=== PATIENT | male | born 1970 | race Caucasian/White ===

== ENCOUNTER 2017-12-19 14:45 | Inpatient (IN) | payer MEDICARE, OTHER ==
--- NOTE | 2017-12-19 15:29 | PDOC ---
History of Present Illness - General Chief Complaint: Alcohol intoxication Stated Complaint: Alcohol intoxication Time Seen by Provider: 12/19/17 15:10 - History of Present Illness Initial Comments: 47yo M brought in by EMS after being found sleeping. Patient history limited by somnolence. He admits to drinking alcohol today, about 6 beers. Denied use of other substances or history of heavy drinking. Has no acute complaints. Denies falls or LOC. Not seen here before; No previous charts present in our medical record. Further history provided by family members. Patient has a history of liver cancer and cirrhosis, likely due to heavy alcohol drinking. He continues to drink alcohol regularly and even two or three beers will make him intoxicated. 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 Past History - Past Medical History Allergies/Adverse Reactions: Allergies Allergy/AdvReac Type Severity Reaction Status Date / Time No Known Allergies Allergy Verified 12/19/17 18:37 Home Medications: Ambulatory Orders Unobtainable 12/19/17 COPD: No Other medical history: unable to obtain - Suicide/Smoking/Psychosocial Hx Smoking History: Unknown if ever smoked Have you smoked in the past 12 months: No Information on smoking cessation initiated: No Hx Alcohol Use: Yes Drug/Substance Use Hx: No Review of Systems - Review of Systems Able to Perform ROS?: No *Physical Exam - Vital Signs Last Vital Signs Temp Pulse Resp BP Pulse Ox 97.3 F L 64 18 105/68 94 L 12/19/17 15:08 12/19/17 15:08 12/19/17 15:08 12/19/17 15:08 12/19/17 15:08 - Physical Exam Comments: General: Awake, alert, and fully oriented, somnolent but arousable Head: no signs of trauma Eyes: PEERL, dilated, EOMI, sclera anicteric ENT: Moist mucus membranes Neck: Normal ROM, supple Lungs: Lungs clear, Normal breath sounds Cardio: Regular rhythm, S1 and S2 present Abdomen: Soft, nontender. No guarding, no rebound, no masses Extremities: Normal range of motion, Distal pulses present SKIN: Warm, Dry, normal turgor Neurologic: Cranial nerves II through XII grossly intact. Slurred speech ED Treatment Course - LABORATORY CBC & Chemistry Diagram: 12/19/17 17:00 12/19/17 17:00 Medical Decision Making - Medical Decision Making 47yo M brought in by EMS after being found sleeping on the street. -admits to drinking 6 beers -benign physical exam; no signs of trauma -will obtain labs -CT head 12/19/17 16:14 Elevated liver enzymes, AST 250 and ALT 142; Ammonia 79; ETOH 300 CT Head: "No CT evidence of acute intracranial pathology. A 2x1cm left inferior frontal hypodense focus is sense probably representing posttraumatic encephalomalacia. Nonemergent MRI evaluation is suggested to exclude other pathologies. Alternatively comparison with prior imaging exams may be performed if available from a different facility." ETOH intoxication vs. Hepatic encephalopathy Dr. Kramer spoke with inpatient team who accepted patient for admission Updated daughter, Cecilia, via telephone, 12/19/17 19:45 *DC/Admit/Observation/Transfer Diagnosis at time of Disposition: Hepatic encephalopathy, Elevated liver enzymes, Alcohol intoxication, Altered mental status - Discharge Dispostion Condition at time of disposition: Guarded - Referrals - Patient Instructions - Post Discharge Activity
--- NOTE | 2017-12-19 16:46 | PDOC ---
*Physical Exam - Vital Signs Last Vital Signs Temp Pulse Resp BP Pulse Ox 97.3 F L 64 18 105/68 94 L 12/19/17 15:08 12/19/17 15:08 12/19/17 15:08 12/19/17 15:08 12/19/17 15:08 - Physical Exam Comments: 12/19/17 17:11 Gen: awake, altered, confused heart: +s1s2 reg lungs: coarse bs R lower chest abd: soft, nt/nd _bs ext: no c/c/e skin: no external signs of trauma neuro: cn ii-xii grossly intact, altered, otherwise no focal deficits ED Treatment Course - LABORATORY CBC & Chemistry Diagram: 12/19/17 17:00 12/19/17 17:00 Medical Decision Making - Medical Decision Making 12/19/17 17:13 a/p: 47yo male signed out from the prior attending pending labs, head ct, cxr -pt with hx of liver ca and per family drank today -pt currently altered -labs and imaging pending 12/19/17 19:10 pt with elevated ammonia and elevated LFT pt with elevated etoh level pt with altered MS suspect hepatic encephalopathy will admit to [facility] first visit to [place] *DC/Admit/Observation/Transfer Diagnosis at time of Disposition: Hepatic encephalopathy, Elevated liver enzymes, Alcohol intoxication, Altered mental status - Discharge Dispostion Condition at time of disposition: Guarded Decision to Admit order: Yes - Referrals - Patient Instructions - Post Discharge Activity - Attestations Physician Attestion: 12/19/17 19:11 I, Dr. Conchis Kramer, DO, attest that this document has been prepared under my direction and personally reviewed by me in its entirety. I further attest, that it accurately reflects all work, treatment, procedures and medical decision -making performed by me.
[2017-12-19] MEDS ORDERED: SODIUM CHLORIDE 0.9% 1000 ML INFUS.BAG IV ONE (17:14)
[2017-12-19 17:58] LABS: BASO % 1.1 % (0-2.0); EOS % 2.3 % (0-4.5); HEMOGLOBIN 15.6 GM/dL (11.7-16.9); MCH 34.7 pg (25.7-33.7); MCHC 33.1 g/dl (32.0-35.9); MEAN CELL VOLUME 104.6 fl (80-96); MEAN PLT VOLUME 9.3 fl (7.5-11.1); MONO % 8.3 % (3.8-10.2); NEUT % 51.3 % (42.8-82.8); PLATELET COUNT 169 K/MM3 (134-434); RBC 4.49 M/mm3 (4.00-5.60); RDW 16.5 % (11.9-15.9); WHITE BLOOD COUNT 4.6 K/mm3 (4.0-10.0)
[2017-12-19 18:11] LABS: INR 0.99 (0.83-1.09); PROTHROMBIN TIME (PATIENT) 11.7 SEC (9.7-13.0)
[2017-12-19 18:14] LABS: ACTIVATED PTT 35.3 SECONDS (25.2-36.5); ALBUMIN 3.4 g/dl (3.4-5.0); ALK PHOS 360 U/L (45-117); ANION GAP 6 MMOL/L (8-16); BILIRUBIN,TOTAL 1.6 mg/dL (0.2-1); BLOOD UREA NITROGEN 8 mg/dL (7-18); CALCIUM 9.1 mg/dL (8.5-10.1); CHLORIDE 116 mmol/L (98-107); CO2 26 mmol/L (21-32); CREATININE 0.4 mg/dL (0.55-1.3); GLUCOSE,RANDOM 79 mg/dL (74-106); LIPASE 293 U/L (73-393); SGOT/AST 250 U/L (15-37); SGPT/ALT 142 U/L (13-61); SODIUM 148 mmol/L (136-145); TOT PROT 8.3 g/dl (6.4-8.2)
[2017-12-19 18:24] LABS: MAGNESIUM 2.3 mg/dL (1.8-2.4)
[2017-12-19] MEDS ORDERED: FOLIC ACID INJECTION - 1 MG, THIAMINE HCL 100 MG, MULTIVIT INJECTION ADULT 10 ML in SOD... IVPB ONE (19:45)
[2017-12-19] MEDS ORDERED: LACTULOSE 20 GM/30 ML UDC (FOR ORAL USE ONLY) PO ONE (19:45)
[2017-12-19] MEDS ORDERED: LACTULOSE 20 GM/30 ML UDC (FOR ORAL USE ONLY) ONE (20:23)
--- NOTE | 2017-12-19 20:39 | PDOC ---
Attending Attestation - Resident Resident Name: Lovely Suarez - ED Attending Attestation I have performed the following: I have examined & evaluated the patient, The case was reviewed & discussed with the resident, I agree w/resident's findings & plan, Exceptions are as noted - HPI HPI: 12/19/17 20:33 47 yo male with h;o liver disease, liver ca, etoh abuse here via ambulance for aMS at work. 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 per pt on questions he has no recollection of events prior to his arrival, does not answer questions. no current complaints of pain. family is at the bedside who provide additional history. per report, pt states he had two beers earilier today. no known trauma. no f/c no known h/o seizure disorder. - Physicial Exam PE: 12/19/17 20:35 pt awake, but confused. eyes open. head atraumatic. mild dry mucosal membranes. lungs crackles at right base. no wheezing. heart reg tachycardia. abd soft nt nd. ext wwp. no eccymosis. nuero alert , disoriented to place and date. moves all four ext. skin warm and dry no rash. - Medical Decision Making 12/19/17 20:36 47 yo male with h;o etoh abuse, liver disease/ ca here with ams from work,. differential includes hepatic encephalopathy, acute intoxication of etoh or other substance. infection such as pna, or aspirational pna, electrolyte abnormality, renal failure. plan ct head, labs including cbc cmp tox screen etoh level, ammounia level. lactate. iv hydration as needed. signed out to lexie paez all labs, ekg and ct.
--- NOTE | 2017-12-19 21:24 | HP ---
CHIEF COMPLAINT: intox PCP: Yuan, Oncology, [facility] [phone] HISTORY OF PRESENT ILLNESS: This is a 47 year old male with a significant past medical history of liver CA and chronic ETOH who was brought in by ambulance after being found sleeping and altered at work. Pt does not recall events prior to arrival in the ED. He reports drinking 3 beers today. Denies any complaints at present. seen ambulating without distress in the ED. 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 Smoking: pt denies Alcohol: daily Drugs: pt denies Family History: unable to obtain-pt states "you ask too many questions" Allergies No Known Allergies Allergy (Verified 12/19/17 18:37) HOME MEDICATIONS: 3 Medication Instructions Recorded Unobtainable 12/19/17 REVIEW OF SYSTEMS CONSTITUTIONAL: Absent: fever, chills, diaphoresis, generalized weakness, malaise, loss of appetite, weight change HEENT: Absent: rhinorrhea, nasal congestion, throat pain, throat swelling, difficulty swallowing, mouth swelling, ear pain, eye pain, visual changes CARDIOVASCULAR: Absent: chest pain, syncope, palpitations, irregular heart rate, lightheadedness , peripheral edema RESPIRATORY: Absent: cough, shortness of breath, dyspnea with exertion, orthopnea, wheezing, stridor, hemoptysis GASTROINTESTINAL: Absent: abdominal pain, abdominal distension, nausea, vomiting, diarrhea, constipation, melena, hematochezia GENITOURINARY: Absent: dysuria, frequency, urgency, hesitancy, hematuria, flank pain, genital pain MUSCULOSKELETAL: Absent: myalgia, arthralgia, joint swelling, back pain, neck pain SKIN: Absent: rash, itching, pallor HEMATOLOGIC/IMMUNOLOGIC: Absent: easy bleeding, easy bruising, lymphadenopathy, frequent infections ENDOCRINE: Absent: unexplained weight gain, unexplained weight loss, heat intolerance, cold intolerance NEUROLOGIC: Present: mental status changes Absent: headache, focal weakness or paresthesias, dizziness, unsteady gait, seizure, bladder or bowel incontinence PSYCHIATRIC: Absent: anxiety, depression, suicidal or homicidal ideation, hallucinations. PHYSICAL EXAMINATION Vital Signs - 24 hr 3 12/19/17 12/19/17 15:08 18:34 Temperature 97.3 F L Pulse Rate 64 Pulse Rate [ 62 Right Radial] Respiratory 18 18 Rate Blood Pressure 105/68 Blood Pressure 107/53 L [Left Arm] O2 Sat by Pulse 94 L 95 Oximetry (%) GENERAL: Awake, alert, and fully oriented, in no acute distress. HEAD: Normal with no signs of trauma. EYES: Pupils equal, round and reactive to light, extraocular movements intact, sclera anicteric, conjunctiva clear. No lid lag. EARS, NOSE, THROAT: Ears normal, nares patent, oropharynx clear without exudates. Moist mucous membranes. NECK: Normal range of motion, supple without lymphadenopathy, JVD, or masses. LUNGS: Breath sounds equal, clear to auscultation bilaterally. No wheezes, and no crackles. No accessory muscle use. HEART: Regular rate and rhythm, normal S1 and S2 without murmur, rub or gallop. ABDOMEN: Soft, nontender, not distended, normoactive bowel sounds, no guarding, no rebound, no masses. No hepatomegaly or splenomegaly. MUSCULOSKELETAL: Normal range of motion at all joints. No bony deformities or tenderness. No CVA tenderness. UPPER EXTREMITIES: 2+ pulses, warm, well-perfused. No cyanosis. No clubbing. No peripheral edema. LOWER EXTREMITIES: 2+ pulses, warm, well-perfused. No calf tenderness. No peripheral edema. NEUROLOGICAL: Cranial nerves II-XII intact. Normal speech. Normal gait. PSYCHIATRIC: Cooperative. Good eye contact. Appropriate mood and affect. SKIN: Warm, dry, normal turgor, no rashes or lesions noted, normal capillary refill. Laboratory Results - last 24 hr 3 12/19/17 12/19/17 12/19/17 17:00 17:00 17:00 WBC 4.6 RBC 4.49 Hgb 15.6 Hct 47.0 MCV 104.6 H MCH 34.7 H MCHC 33.1 RDW 16.5 H Plt Count 169 MPV 9.3 Absolute Neuts (auto) 2.3 Neutrophils % 51.3 Lymphocytes % 37.0 Monocytes % 8.3 Eosinophils % 2.3 Basophils % 1.1 Nucleated RBC % 0 PT with INR 11.70 INR 0.99 PTT (Actin FS) 35.3 Sodium 148 H Potassium 4.0 Chloride 116 H Carbon Dioxide 26 Anion Gap 6 L BUN 8 Creatinine 0.4 L Creat Clearance w eGFR > 60 Random Glucose 79 Lactic Acid 2.1 H Calcium 9.1 Magnesium 2.3 Total Bilirubin 1.6 H AST 250 H ALT 142 H Alkaline Phosphatase 360 H Ammonia 78.76 H Total Protein 8.3 H Albumin 3.4 Lipase 293 TSH 0.75 Alcohol, Quantitative 300.44332 H ECG sinus bradycardia vent rate 68, QTC 453 flattened T noted lead [address] head Impression: No CT evidence of acute intracranial pathology. A 2 x 1 cm left inferior frontal hypodense focus is seen probably representing posttraumatic encephalomalacia. Nonemergent MRI evaluation is suggested to exclude other pathologies. Alternatively comparison with prior imaging exams may be performed if available from a different facility. Reported By: Arvind Parrish MD 12/19/171934 ASSESSMENT/PLAN: 47yM with PMH liver CA s/p resection and chronic ETOH use brought in by ambulance after found sleeping with AMS at work. Hepatic encephalopathy in setting of liver CA - lactulose given x 1 in ED, cont TID - consider GI consult; however, pt appears to be connected to providers at [facility] - home meds unknown at this time, pt utilizes [facility] which opens at 9am. [phone] Alcohol use disorder - monitor CIWA for s/s withdrawal - would use ativan for withdrawal due to liver disease if benzos required DVT PPX - heparin TID FEN - receiving NS with MVI and folic acid in ED, tolerating po, defer maintenance fluids - BMP in am - Regular diet as tolerated Dispo: pt currently requires further inpatient management of his emergent condition Visit type - Emergency Visit Emergency Visit: Yes ED Registration Date: 12/19/17 Care time: The patient presented to the Emergency Department on the above date and was hospitalized for further evaluation of their emergent condition. - New Patient This patient is new to me today: Yes Date on this admission: 12/19/17 - Critical Care Critical Care patient: No
[2017-12-19] MEDS: HEPARIN NA (PORCINE) 5,000 UNITS/ML 1ML VIAL SQ SCH (22:19)
[2017-12-20 01:04] VITALS: BMI 24.5
[2017-12-20] MEDS: HEPARIN NA (PORCINE) 5,000 UNITS/ML 1ML VIAL SQ SCH (05:50)
[2017-12-20] MEDS ORDERED: LACTULOSE 20 GM/30 ML UDC (FOR ORAL USE ONLY) PO SCH (06:00)
[2017-12-20 06:05] LABS: URINE APPEARANCE CLEAR; URINE BILIRUBIN NEGATIVE (<2.0 mg/dL); URINE COLOR AMBER; URINE GLUCOSE (UA) 1+ (NEGATIVE); URINE KETONE TRACE (NEGATIVE); URINE LEUK ESTERASE NEGATIVE (NEGATIVE); URINE NITRITE NEGATIVE (NEGATIVE); URINE PROTEIN NEGATIVE (NEGATIVE); URINE UROBILINOGEN NEGATIVE mg/dL (0.2-1.0)
[2017-12-20 06:28] LABS: COCAINE, UR NEGATIVE ng/ml (CUTOFF=300); METHADONE, UR NEGATIVE ng/ml (CUTOFF=300); OPIATES, URI NEGATIVE ng/ml (CUTOFF=300); PHENCYCLIDINE,URINE NEGATIVE ng/ml (CUTOFF=25); URINE AMPHETAMINES NEGATIVE ng/ml (CUTOFF=500); URINE BARBITURATES NEGATIVE ng/ml (CUTOFF=200); URINE BENZODIAZEPINES NEGATIVE ng/ml (CUTOFF=200)
[2017-12-20 07:12] LABS: BASO % 1.9 % (0-2.0); EOS % 4.5 % (0-4.5); LYMPH % 28.3 % (8-40); MCH 34.9 pg (25.7-33.7); MCHC 33.2 g/dl (32.0-35.9); MONO % 9.7 % (3.8-10.2); NEUT % 55.6 % (42.8-82.8); PLATELET COUNT 136 K/MM3 (134-434); RBC 4.29 M/mm3 (4.00-5.60); RDW 16.5 % (11.9-15.9); WHITE BLOOD COUNT 3.2 K/mm3 (4.0-10.0)
[2017-12-20 07:41] LABS: ANION GAP 4 MMOL/L (8-16); BLOOD UREA NITROGEN 8 mg/dL (7-18); CALCIUM 8.2 mg/dL (8.5-10.1); CHLORIDE 114 mmol/L (98-107); CO2 29 mmol/L (21-32); CREATININE 0.4 mg/dL (0.55-1.3); GLUCOSE,RANDOM 94 mg/dL (74-106); MAGNESIUM 2.1 mg/dL (1.8-2.4); PHOSPHOROUS 2.9 mg/dL (2.5-4.9); POTASSIUM 3.9 mmol/L (3.5-5.1); SODIUM 147 mmol/L (136-145)
[2017-12-20 08:09] LABS: ALK PHOS 270 U/L (45-117); BILIRUBIN,TOTAL 1.5 mg/dL (0.2-1); SGOT/AST 229 U/L (15-37); SGPT/ALT 131 U/L (13-61); TOT PROT 7.8 g/dl (6.4-8.2)
[2017-12-20 08:34] VITALS: BP 149/63; PULSE 81; TEMP 98
[2017-12-20] MEDS ORDERED: LORazepam 2 MG/ML SDV VIAL IVPUSH PRN (08:57)
--- NOTE | 2017-12-20 09:49 | EKG ---
Test Reason : Blood Pressure : / mmHG Vent. Rate : 058 BPM Atrial Rate : 058 BPM P-R Int : 178 ms QRS Dur : 094 ms QT Int : 462 ms P-R-T Axes : 031 026 036 degrees QTc Int : 453 ms SINUS BRADYCARDIA WHEN COMPARED WITH ECG OF 29-NOV-2002 14:17, QT HAS LENGTHENED Confirmed by LARRY JOLLY MD ([id number]) on 12/20/2017 9:49:04 AM Referred By: Confirmed By:LARRY JOLLY MD
--- NOTE | 2017-12-20 10:13 | PN ---
Physical Exam: SUBJECTIVE: Patient seen and examined OBJECTIVE: Vital Signs Period Temp Pulse Resp BP Sys/Nunez Pulse Ox Last 24 Hr 97.3 F-98.3 F 22-81 16-20 105-149/53-79 94-96 GENERAL: The patient is awake, alert, and fully oriented, in no acute distress. HEAD: Normal with no signs of trauma. EYES: PERRL, extraocular movements intact, sclera anicteric, conjunctiva clear. No ptosis. ENT: Ears normal, nares patent, oropharynx clear without exudates, moist mucous membranes. NECK: Trachea midline, full range of motion, supple. LUNGS: Breath sounds equal, clear to auscultation bilaterally, no wheezes, no crackles, no accessory muscle use. HEART: Regular rate and rhythm, S1, S2 without murmur, rub or gallop. ABDOMEN: Soft, nontender, nondistended, normoactive bowel sounds, no guarding, no rebound, no hepatosplenomegaly, no masses. EXTREMITIES: 2+ pulses, warm, well-perfused, no edema. NEUROLOGICAL: Cranial nerves II through XII grossly intact. Normal speech, gait not observed. PSYCH: Normal mood, normal affect. SKIN: Warm, dry, normal turgor, no rashes or lesions noted Laboratory Results - last 24 hr 12/19/17 12/19/17 12/19/17 15:09 17:00 17:00 WBC 4.6 RBC 4.49 Hgb 15.6 Hct 47.0 MCV 104.6 H MCH 34.7 H MCHC 33.1 RDW 16.5 H Plt Count 169 MPV 9.3 Absolute Neuts (auto) 2.3 Neutrophils % 51.3 Lymphocytes % 37.0 Monocytes % 8.3 Eosinophils % 2.3 Basophils % 1.1 Nucleated RBC % 0 PT with INR 11.70 INR 0.99 PTT (Actin FS) 35.3 Sodium Potassium Chloride Carbon Dioxide Anion Gap BUN Creatinine Creat Clearance w eGFR POC Glucometer [id number] Random Glucose Lactic Acid Calcium Phosphorus Magnesium Total Bilirubin Direct Bilirubin AST ALT Alkaline Phosphatase Ammonia Total Protein Albumin Lipase TSH Urine Color Urine Appearance Urine pH Ur Specific [place] Urine Protein Urine Glucose (UA) Urine Ketones Urine Blood Urine Nitrite Urine Bilirubin Urine Urobilinogen Ur Leukocyte Esterase Opiates Screen Methadone Screen Barbiturate Screen Phencyclidine Screen Ur Amphetamines Screen MDMA (Ecstasy) Screen Benzodiazepines Screen Cocaine Screen U Marijuana (THC) Screen Alcohol, Quantitative 12/19/17 12/19/17 12/19/17 17:00 17:00 17:00 WBC RBC Hgb Hct MCV MCH MCHC RDW Plt Count MPV Absolute Neuts (auto) Neutrophils % Lymphocytes % Monocytes % Eosinophils % Basophils % Nucleated RBC % PT with INR INR PTT (Actin FS) Sodium 148 H Potassium 4.0 Chloride 116 H Carbon Dioxide 26 Anion Gap 6 L BUN 8 Creatinine 0.4 L Creat Clearance w eGFR > 60 POC Glucometer Random Glucose 79 Lactic Acid Calcium 9.1 Phosphorus Magnesium 2.3 Total Bilirubin 1.6 H Direct Bilirubin AST 250 H ALT 142 H Alkaline Phosphatase 360 H Ammonia 78.76 H Total Protein 8.3 H Albumin 3.4 Lipase 293 TSH 0.75 Urine Color Urine Appearance Urine pH Ur Specific [place] Urine Protein Urine Glucose (UA) Urine Ketones Urine Blood Urine Nitrite Urine Bilirubin Urine Urobilinogen Ur Leukocyte Esterase Opiates Screen Methadone Screen Barbiturate Screen Phencyclidine Screen Ur Amphetamines Screen MDMA (Ecstasy) Screen Benzodiazepines Screen Cocaine Screen U Marijuana (THC) Screen Alcohol, Quantitative 300.10601 H 12/19/17 12/19/17 12/20/17 17:00 17:00 05:50 WBC RBC Hgb Hct MCV MCH MCHC RDW Plt Count MPV Absolute Neuts (auto) Neutrophils % Lymphocytes % Monocytes % Eosinophils % Basophils % Nucleated RBC % PT with INR INR PTT (Actin FS) Sodium Potassium Chloride Carbon Dioxide Anion Gap BUN Creatinine Creat Clearance w eGFR POC Glucometer Random Glucose Lactic Acid 2.1 H Calcium Phosphorus Magnesium Total Bilirubin Direct Bilirubin AST ALT Alkaline Phosphatase Ammonia Total Protein Albumin Lipase Cancelled TSH Urine Color Guillermina Urine Appearance Clear Urine pH 5.0 Ur Specific [place] 1.026 Urine Protein Negative Urine Glucose (UA) 1+ H Urine Ketones Trace H Urine Blood Negative Urine Nitrite Negative Urine Bilirubin Negative Urine Urobilinogen Negative Ur Leukocyte Esterase Negative Opiates Screen Methadone Screen Barbiturate Screen Phencyclidine Screen Ur Amphetamines Screen MDMA (Ecstasy) Screen Benzodiazepines Screen Cocaine Screen U Marijuana (THC) Screen Alcohol, Quantitative 12/20/17 12/20/17 12/20/17 05:50 06:00 06:00 WBC 3.2 L RBC 4.29 Hgb 15.0 Hct 45.0 MCV 105.0 H MCH 34.9 H MCHC 33.2 RDW 16.5 H Plt Count 136 MPV 9.0 Absolute Neuts (auto) 1.8 Neutrophils % 55.6 Lymphocytes % 28.3 D Monocytes % 9.7 Eosinophils % 4.5 D Basophils % 1.9 Nucleated RBC % 0 PT with INR INR PTT (Actin FS) Sodium 147 H Potassium 3.9 Chloride 114 H Carbon Dioxide 29 Anion Gap 4 L BUN 8 Creatinine 0.4 L Creat Clearance w eGFR > 60 POC Glucometer Random Glucose 94 Lactic Acid Calcium 8.2 L Phosphorus 2.9 Magnesium 2.1 Total Bilirubin 1.5 H Direct Bilirubin 1.0 H AST 229 H ALT 131 H Alkaline Phosphatase 270 H Ammonia Total Protein 7.8 Albumin 3.0 L Lipase TSH Urine Color Urine Appearance Urine pH Ur Specific [place] Urine Protein Urine Glucose (UA) Urine Ketones Urine Blood Urine Nitrite Urine Bilirubin Urine Urobilinogen Ur Leukocyte Esterase Opiates Screen Negative Methadone Screen Negative Barbiturate Screen Negative Phencyclidine Screen Negative Ur Amphetamines Screen Negative MDMA (Ecstasy) Screen Negative Benzodiazepines Screen Negative Cocaine Screen Negative U Marijuana (THC) Screen Negative Alcohol, Quantitative 12/20/17 06:00 WBC RBC Hgb Hct MCV MCH MCHC RDW Plt Count MPV Absolute Neuts (auto) Neutrophils % Lymphocytes % Monocytes % Eosinophils % Basophils % Nucleated RBC % PT with INR INR PTT (Actin FS) Sodium Potassium Chloride Carbon Dioxide Anion Gap BUN Creatinine Creat Clearance w eGFR POC Glucometer Random Glucose Lactic Acid Calcium Phosphorus Magnesium Total Bilirubin Direct Bilirubin AST ALT Alkaline Phosphatase Ammonia 76.27 H Total Protein Albumin Lipase TSH Urine Color Urine Appearance Urine pH Ur Specific [place] Urine Protein Urine Glucose (UA) Urine Ketones Urine Blood Urine Nitrite Urine Bilirubin Urine Urobilinogen Ur Leukocyte Esterase Opiates Screen Methadone Screen Barbiturate Screen Phencyclidine Screen Ur Amphetamines Screen MDMA (Ecstasy) Screen Benzodiazepines Screen Cocaine Screen U Marijuana (THC) Screen Alcohol, Quantitative Active Medications Generic Name Dose Route Start Last Admin Trade Name Freq PRN Reason Stop Dose Admin Heparin Sodium (Porcine) 5,000 unit 12/19/17 22:00 12/20/17 05:50 Heparin - SQ 5,000 unit TID ROSA Administration Lactulose 20 gm 12/20/17 06:00 12/20/17 05:50 Cephulac (Oral Use) PO 20 gm TID ROSA Administration Lorazepam 2 mg 10/12/18 08:57 Ativan Injection - IVPUSH Q3H PRN ANXIETY ASSESSMENT/PLAN:
--- NOTE | 2017-12-20 11:27 | DS ---
Physical Exam: SUBJECTIVE: Patient seen and examined at bedside. Seen ambulating around the room, reading a magazine. Goes to work every day but also drinks almost every day. Used to attend AA, now goes to [employer] to deal with his alcohol dependence. Denies anxiety, tremulousness, sweatiness. Feels well and would like to go home. PHYSICAL EXAM Vital Signs Period Temp Pulse Resp BP Sys/Nunez Pulse Ox Last 24 Hr 97.3 F-98.3 F 22-81 16-20 105-149/53-79 94-96 GENERAL: The patient is awake, alert, and fully oriented, in no acute distress. HEAD: Normal with no signs of trauma. EYES: PERRL, extraocular movements intact, +sclera icteric LUNGS: Breath sounds equal, clear to auscultation bilaterally, no wheezes, no crackles, no accessory muscle use. HEART: Regular rate and rhythm, S1, S2 ABDOMEN: Soft, nontender, nondistended EXTREMITIES: 2+ pulses, warm, well-perfused, no edema. NEUROLOGICAL: Cranial nerves II through XII grossly intact. Normal speech, steady gait. No tremors, no asterixis. PSYCH: Normal mood, normal affect. SKIN: Warm, dry, normal turgor LABS Laboratory Results - last 24 hr 12/19/17 12/19/17 12/19/17 15:09 17:00 17:00 WBC 4.6 RBC 4.49 Hgb 15.6 Hct 47.0 MCV 104.6 H MCH 34.7 H MCHC 33.1 RDW 16.5 H Plt Count 169 MPV 9.3 Absolute Neuts (auto) 2.3 Neutrophils % 51.3 Lymphocytes % 37.0 Monocytes % 8.3 Eosinophils % 2.3 Basophils % 1.1 Nucleated RBC % 0 PT with INR 11.70 INR 0.99 PTT (Actin FS) 35.3 Sodium Potassium Chloride Carbon Dioxide Anion Gap BUN Creatinine Creat Clearance w eGFR POC Glucometer 114.54613 Random Glucose Lactic Acid Calcium Phosphorus Magnesium Total Bilirubin Direct Bilirubin AST ALT Alkaline Phosphatase Ammonia Total Protein Albumin Lipase TSH Urine Color Urine Appearance Urine pH Ur Specific [place] Urine Protein Urine Glucose (UA) Urine Ketones Urine Blood Urine Nitrite Urine Bilirubin Urine Urobilinogen Ur Leukocyte Esterase Opiates Screen Methadone Screen Barbiturate Screen Phencyclidine Screen Ur Amphetamines Screen MDMA (Ecstasy) Screen Benzodiazepines Screen Cocaine Screen U Marijuana (THC) Screen Alcohol, Quantitative 12/19/17 12/19/17 12/19/17 17:00 17:00 17:00 WBC RBC Hgb Hct MCV MCH MCHC RDW Plt Count MPV Absolute Neuts (auto) Neutrophils % Lymphocytes % Monocytes % Eosinophils % Basophils % Nucleated RBC % PT with INR INR PTT (Actin FS) Sodium 148 H Potassium 4.0 Chloride 116 H Carbon Dioxide 26 Anion Gap 6 L BUN 8 Creatinine 0.4 L Creat Clearance w eGFR > 60 POC Glucometer Random Glucose 79 Lactic Acid Calcium 9.1 Phosphorus Magnesium 2.3 Total Bilirubin 1.6 H Direct Bilirubin AST 250 H ALT 142 H Alkaline Phosphatase 360 H Ammonia 78.76 H Total Protein 8.3 H Albumin 3.4 Lipase 293 TSH 0.75 Urine Color Urine Appearance Urine pH Ur Specific [place] Urine Protein Urine Glucose (UA) Urine Ketones Urine Blood Urine Nitrite Urine Bilirubin Urine Urobilinogen Ur Leukocyte Esterase Opiates Screen Methadone Screen Barbiturate Screen Phencyclidine Screen Ur Amphetamines Screen MDMA (Ecstasy) Screen Benzodiazepines Screen Cocaine Screen U Marijuana (THC) Screen Alcohol, Quantitative 300.66609 H 12/19/17 12/19/17 12/20/17 17:00 17:00 05:50 WBC RBC Hgb Hct MCV MCH MCHC RDW Plt Count MPV Absolute Neuts (auto) Neutrophils % Lymphocytes % Monocytes % Eosinophils % Basophils % Nucleated RBC % PT with INR INR PTT (Actin FS) Sodium Potassium Chloride Carbon Dioxide Anion Gap BUN Creatinine Creat Clearance w eGFR POC Glucometer Random Glucose Lactic Acid 2.1 H Calcium Phosphorus Magnesium Total Bilirubin Direct Bilirubin AST ALT Alkaline Phosphatase Ammonia Total Protein Albumin Lipase Cancelled TSH Urine Color Guillermina Urine Appearance Clear Urine pH 5.0 Ur Specific [place] 1.026 Urine Protein Negative Urine Glucose (UA) 1+ H Urine Ketones Trace H Urine Blood Negative Urine Nitrite Negative Urine Bilirubin Negative Urine Urobilinogen Negative Ur Leukocyte Esterase Negative Opiates Screen Methadone Screen Barbiturate Screen Phencyclidine Screen Ur Amphetamines Screen MDMA (Ecstasy) Screen Benzodiazepines Screen Cocaine Screen U Marijuana (THC) Screen Alcohol, Quantitative 12/20/17 12/20/17 12/20/17 05:50 06:00 06:00 WBC 3.2 L RBC 4.29 Hgb 15.0 Hct 45.0 MCV 105.0 H MCH 34.9 H MCHC 33.2 RDW 16.5 H Plt Count 136 MPV 9.0 Absolute Neuts (auto) 1.8 Neutrophils % 55.6 Lymphocytes % 28.3 D Monocytes % 9.7 Eosinophils % 4.5 D Basophils % 1.9 Nucleated RBC % 0 PT with INR INR PTT (Actin FS) Sodium 147 H Potassium 3.9 Chloride 114 H Carbon Dioxide 29 Anion Gap 4 L BUN 8 Creatinine 0.4 L Creat Clearance w eGFR > 60 POC Glucometer Random Glucose 94 Lactic Acid Calcium 8.2 L Phosphorus 2.9 Magnesium 2.1 Total Bilirubin 1.5 H Direct Bilirubin 1.0 H AST 229 H ALT 131 H Alkaline Phosphatase 270 H Ammonia Total Protein 7.8 Albumin 3.0 L Lipase TSH Urine Color Urine Appearance Urine pH Ur Specific [place] Urine Protein Urine Glucose (UA) Urine Ketones Urine Blood Urine Nitrite Urine Bilirubin Urine Urobilinogen Ur Leukocyte Esterase Opiates Screen Negative Methadone Screen Negative Barbiturate Screen Negative Phencyclidine Screen Negative Ur Amphetamines Screen Negative MDMA (Ecstasy) Screen Negative Benzodiazepines Screen Negative Cocaine Screen Negative U Marijuana (THC) Screen Negative Alcohol, Quantitative 12/20/17 06:00 WBC RBC Hgb Hct MCV MCH MCHC RDW Plt Count MPV Absolute Neuts (auto) Neutrophils % Lymphocytes % Monocytes % Eosinophils % Basophils % Nucleated RBC % PT with INR INR PTT (Actin FS) Sodium Potassium Chloride Carbon Dioxide Anion Gap BUN Creatinine Creat Clearance w eGFR POC Glucometer Random Glucose Lactic Acid Calcium Phosphorus Magnesium Total Bilirubin Direct Bilirubin AST ALT Alkaline Phosphatase Ammonia 76.27 H Total Protein Albumin Lipase TSH Urine Color Urine Appearance Urine pH Ur Specific [place] Urine Protein Urine Glucose (UA) Urine Ketones Urine Blood Urine Nitrite Urine Bilirubin Urine Urobilinogen Ur Leukocyte Esterase Opiates Screen Methadone Screen Barbiturate Screen Phencyclidine Screen Ur Amphetamines Screen MDMA (Ecstasy) Screen Benzodiazepines Screen Cocaine Screen U Marijuana (THC) Screen Alcohol, Quantitative HOSPITAL COURSE: Date of Admission:12/19/17 Date of Discharge: 12/20/17 Pre hospital course This is a 47 year old male with a significant past medical history of liver CA and chronic ETOH who was brought in by ambulance after being found sleeping and altered at work. Pt did not recall events prior to arrival in the ED. He reported drinking 3 beers that day. Denies any complaints at present. Seen ambulating without distress in the ED. 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 Gurjit Bolden for his liver cancer at [facility] and has an appointment to see him on 12/23/17 Minutes to complete discharge: 35 Discharge Summary Reason For Visit: ALCHOLIC INTOXICATION,HEPATIC ENCEPHALOPATHY Current Active Problems Alcohol intoxication (Acute) Altered mental status (Acute) Elevated liver enzymes (Acute) Hepatic encephalopathy (Acute) Condition: Improved - Instructions Diet, Activity, Other Instructions: It is important you go to your appointment with Dr. Gurjit Bolden on Saturday, December 23. Tell him of your stay in the hospital. Return to the emergency department for any new or worsening symptoms. Referrals: Gurjit Bolden Dr. [Other] Disposition: HOME - Home Medications Comprehensive Discharge Medication List: Ambulatory Orders Gabapentin 100 mg PO BID 12/20/17 Nadolol 20 mg PO DAILY 12/20/17 Nexavar 1 tab PO HS 12/20/17 Protonix 40 mg PO DAILY 12/20/17 Sorafenib Tosylate [Nexavar] 400 mg PO AM 12/20/17 This patient is new to me today: Yes Date on this admission: 12/27/17 Emergency Visit: Yes ED Registration Date: 12/19/17 Care time: The patient presented to the Emergency Department on the above date and was hospitalized for further evaluation of their emergent condition. Critical Care patient: No - Discharge Referral Referred to [facility] No
== END 2017-12-20 13:47 | disposition home or self-care (01) | DRG 775 ==
LOC: JER 14:45 → JERBED 18:34 → J4S 22:45
PROVIDERS: ADMIT Internal Medicine; ATTEND Nurse Practitioner Acute Care
PROC: HZ2ZZZZ Detoxification Services for Substance Abuse Treatment (ICD-10-PCS; principal; 2017-12-19)
DX: F10.229 Alcohol dependence with intoxication, unspecified (principal); Y90.8 Blood alcohol level of 240 mg/100 ml or more; C22.8 Malignant neoplasm of liver, primary, unspecified as to type; K72.00 Acute and subacute hepatic failure without coma
CPT/HCPCS: 36415; 70450-TC; 71045-TC-FY; 80048; 80053; 80076; 80307; 81003; 82140; 82962; 83605; 83690; 83735; 84100; 84443; 85025; 85610; 85730; 87040; 93005; 93010; 99285-25; J1644; J7030